=== PATIENT | female | born 1935 | race Caucasian/White ===

== ENCOUNTER 2018-03-11 13:31 | Emergency (ER) | payer MEDICARE ==
[~2018-03-11] VITALS: Ht 167.6 cm; Wt 58.0 kg
[~2018-03-11 13:31] MED LIST: ALPR-138 PO; AMLO5TAB96 PO; COUM2.5T PO; LANO0.2510 PO; VITATAB25 PO; WARF2TAB PO; ZOCO40TA PO
[2018-03-11 13:34] VITALS: BP 148/81; PULSE 87; RESP 16; TEMP 98.2; O2SAT 96
[2018-03-11] MEDS ORDERED: ALPR.5 PO (13:47)
[2018-03-11] MEDS ORDERED: WARF-18 PO (13:47)
[2018-03-11] MEDS ORDERED: DIGO0.12 PO (13:47)
[2018-03-11] MEDS ORDERED: PRAV40TA2 PO (13:47)
[2018-03-11] MEDS ORDERED: AMLO5TAB2 PO (13:47)
[2018-03-11] MEDS ORDERED: D200CAP PO (13:47)
[2018-03-11] MEDS ORDERED: LORazepam 0.5 MG TAB PO ONE (14:15)
--- NOTE | 2018-03-11 14:36 | PD ---
HPI Chief Complaint: Anxiety Time Seen by Provider: 13:53 Travel History International Travel<30 days: No Contact w/Intl Traveler<30days: No Traveled to known affect area: No History of Present Illness HPI This patient complains of anxiety. She got nervous and anxious. Then she started to get numbness of both hands and both feet. There is no muscle weakness or sensory loss or speech slurring. By the time I evaluate her her problem has basically gone away and she says she feels much better. Her anxiety is very minor at this time. The numbness has gone away. She does not have headache or syncope or chest pain. No alleviating factors. No exacerbating factors. PFSH Past Medical History Atrial Fibrillation: Yes Anxiety: Yes Heart Rhythm Problems: Yes (atrial fibrillation) Cancer: No Cardiovascular Problems: Yes (A-Fib) High Cholesterol: Yes Chest Pain: No Congestive Heart Failure: No Cerebrovascular Accident: Yes (TIA symptoms 2013) Diminished Hearing: No Endocrine: No Genitourinary: No Hypertension: Yes Musculoskeletal: No Neurologic: Yes Psychiatric: Yes Reproductive: No Respiratory: No Immunizations Current: Yes Migraines: No Seizures: No Influenza Vaccination: Yes ?: Not Menopausal: Yes Past Surgical History Appendectomy: Yes (UNSURE) Genitourinary Surgery: Yes (hysterectomy) Hysterectomy: Yes Social History Alcohol Use: Yes (WINE OCC) Tobacco Use: No Substance Use: No Allergies-Medications (Allergen,Severity, Reaction): Coded Allergies: No Known Allergies (Verified , 10/24/14) Reported Meds & Prescriptions Reported Meds & Active Scripts Active Reported D3 Super Strength (Cholecalciferol) 2,000 Unit Cap 2,000 Units PO DAILY Xanax (Alprazolam) 0.5 Mg Tab 0.5 Mg PO Q6H PRN Pravastatin 40 Mg Tab 40 Mg PO DAILY Amlodipine (Amlodipine Besylate) 5 Mg Tab 5 Mg PO DAILY Warfarin 2.5 Mg Tab 2.5 Mg PO MCCLURE,MO,,TH,SA Digoxin 0.125 Mg Tab 0.125 Mg PO DAILY Vitamin D-[address] (Cholecalciferol) 1,000 Unit Tab 1,000 Unit PO DAILY Coumadin 2.5 mg (Warfarin Sodium) Warfarin Sodium 2.5 mg Tab 1 Tab PO T,W,,SAT ,MCCLURE Warfarin Sodium 2 Mg Tab 1 Tab PO MON,FRI Xanax (Alprazolam) 0.25 Mg Tab 0 PO BIDPRN UNKNOWN DOSE Zocor 40 mg (Simvastatin) 40 Mg Tab 40 Mg PO HS Lanoxin (Digoxin) 0.25 Mg Tab 0.25 Mg PO DAILY Norvasc (Amlodipine Besylate) 5 Mg Tab 5 Mg PO DAILY Review of Systems General / Constitutional: No: Fever Eyes: No: Visual changes HENT: No: Headaches Cardiovascular: No: Chest Pain or Discomfort Respiratory: No: Shortness of Breath Gastrointestinal: No: Abdominal Pain Genitourinary: No: Dysuria Musculoskeletal: No: Pain Skin: No Rash Neurologic: No: Weakness Psychiatric: Positive: Anxiety, No: Depression Endocrine: No: Polydipsia Hematologic/Lymphatic: No: Easy Bruising Physical Exam Narrative GENERAL: Well-nourished, well-developed patient in no apparent distress. SKIN: Focused skin assessment reveals no rash and nodules. Skin is Warm and dry. HEAD: Atraumatic. Normocephalic. EYES: Pupils equal and round. No scleral icterus. No injection or drainage. ENT: No nasal bleeding or discharge. Mucous membranes pink and moist. NECK: Trachea midline. No JVD. CARDIOVASCULAR: Regular rate and rhythm. No murmur appreciated. RESPIRATORY: No accessory muscle use. Clear to auscultation. Breath sounds equal bilaterally. GASTROINTESTINAL: Abdomen soft, non-tender, nondistended. Hepatic and splenic margins not palpable. MUSCULOSKELETAL: No obvious deformities. No clubbing. No cyanosis. No edema. Chronic flexion of the right fourth and fifth finger. NEUROLOGICAL: Awake and alert. No obvious cranial nerve deficits. Motor grossly within normal limits. Normal speech. PSYCHIATRIC: Appropriate mood and affect; insight and judgment normal. Data Data Last Documented VS Vital Signs Date Time Temp Pulse Resp B/P (MAP) Pulse Ox O2 Delivery O2 Flow Rate FiO2 03/11/18 13:34 98.2 87 16 148/81 (103) 96 Orders Orders Lorazepam (Ativan) (03/11/18 14:15) [facility] Medical Decision Making Medical Screen Exam Complete: Yes Emergency Medical Condition: Yes Medical Record Reviewed: Yes Differential Diagnosis Anxiety, panic, CVA Narrative Course I have reviewed the patient's electronic medical record. Patient had an anxiety attack that has resolved and now her symptoms are gone away. The patient was advised to follow up with their physician and return if they worsen. Diagnosis Primary Impression: Anxiety attack Additional Instructions: The patient was advised to follow up with their physician and return if they worsen. Med/Other Pt SpecificInfo: Other Disposition: 01 DISCHARGE HOME Condition: Stable Isaac Anglin MD Mar 11, 2018 14:36
== END 2018-03-11 15:05 | disposition home or self-care (01) ==
LOC: PHED 13:31
DX: F41.1 Generalized anxiety disorder (principal); I48.91 Unspecified atrial fibrillation; E78.00 Pure hypercholesterolemia, unspecified; I10 Essential (primary) hypertension; M19.90 Unspecified osteoarthritis, unspecified site; Z86.73 Personal history of transient ischemic attack (TIA), and cerebral infarction without residual deficits
CPT/HCPCS: 99283

== ENCOUNTER 2018-04-04 12:52 | Emergency (ER) | payer MEDICARE ==
[~2018-04-04] VITALS: Ht 167.6 cm; Wt 54.0 kg
[~2018-04-04 12:52] MED LIST changes: +ALPR.5 PO; +AMLO5TAB2 PO; +D200CAP PO; +DIGO0.12 PO; +PRAV40TA2 PO; +WARF-18 PO
[2018-04-04 13:06] VITALS: BP 118/57; PULSE 80; RESP 16; TEMP 97.7; O2SAT 98
[2018-04-04] MEDS ORDERED: DEXAMETHASONE SOD PHOS 4 MG/ML VIAL IM ONE (14:30)
--- NOTE | 2018-04-04 14:35 | PD ---
HPI Chief Complaint: Musculoskeletal Complaint Time Seen by Provider: 13:25 Travel History International Travel<30 days: No Contact w/Intl Traveler<30days: No Traveled to known affect area: No History of Present Illness HPI 82-year-old female presents emergency department complaining of left leg pain that started 2 weeks ago. Patient says that she feels as if her leg is "on fire " and has a difficult time pointing out where she is having pain but describes it as diffuse. Patient says that she has had difficulty raising the leg secondary to pain. There are no apparent palliative or provocative factors. The pain is moderate in severity. Says the pain starts in the left glut and goes to the thigh and foot. Says he has had multiple falls in the last several months and was here at [facility] approximately 1 week ago. Says that she has been evaluated for these falls previously. She does take Coumadin for her history of atrial fibrillation. PFSH Past Medical History Atrial Fibrillation: Yes Anxiety: Yes Heart Rhythm Problems: Yes (atrial fibrillation) Cancer: No Cardiovascular Problems: Yes (A-Fib) High Cholesterol: Yes Chest Pain: No Congestive Heart Failure: No Cerebrovascular Accident: Yes (TIA symptoms 2013) Diminished Hearing: No Endocrine: No Genitourinary: No Hypertension: Yes Musculoskeletal: No Neurologic: Yes Psychiatric: Yes Reproductive: No Respiratory: No Immunizations Current: Yes Migraines: No Seizures: No Menopausal: Yes Past Surgical History Appendectomy: Yes (UNSURE) Genitourinary Surgery: Yes (hysterectomy) Hysterectomy: Yes Social History Alcohol Use: Yes (WINE OCC) Tobacco Use: No Substance Use: No Allergies-Medications (Allergen,Severity, Reaction): Coded Allergies: No Known Allergies (Verified Adverse Reaction, Unknown, 04/04/18) Reported Meds & Prescriptions Reported Meds & Active Scripts Active Prednisone 5 Mg Tab 5 Mg PO DAILY 5 Days As discussed, start this medication in 1-2 days if your pain persists. Reported D3 Super Strength (Cholecalciferol) 2,000 Unit Cap 2,000 Units PO DAILY Xanax (Alprazolam) 0.5 Mg Tab 0.5 Mg PO Q6H PRN Pravastatin 40 Mg Tab 40 Mg PO DAILY Amlodipine (Amlodipine Besylate) 5 Mg Tab 5 Mg PO DAILY Warfarin 2.5 Mg Tab 2.5 Mg PO MCCLURE,MO,WE,TH,SA Digoxin 0.125 Mg Tab 0.125 Mg PO DAILY Vitamin D-[address] (Cholecalciferol) 1,000 Unit Tab 1,000 Unit PO DAILY Coumadin 2.5 mg (Warfarin Sodium) Warfarin Sodium 2.5 mg Tab 1 Tab PO T,W,TH,SAT ,MCCLURE Warfarin Sodium 2 Mg Tab 1 Tab PO MON,FRI Xanax (Alprazolam) 0.25 Mg Tab 0 PO BIDPRN UNKNOWN DOSE Zocor 40 mg (Simvastatin) 40 Mg Tab 40 Mg PO HS Lanoxin (Digoxin) 0.25 Mg Tab 0.25 Mg PO DAILY Norvasc (Amlodipine Besylate) 5 Mg Tab 5 Mg PO DAILY Review of Systems Except as stated in HPI: all other systems reviewed are Neg Physical Exam Narrative GENERAL: Well developed, well-nourished, thin, slightly anxious SKIN: Focused skin assessment warm/dry. HEAD: Atraumatic. Normocephalic. EYES: Pupils equal and round. No scleral icterus. No injection or drainage. PERRLA ENT: No nasal bleeding or discharge. Mucous membranes pink and moist. NECK: Trachea midline. No JVD. No midline tenderness CARDIOVASCULAR: Regular rate and rhythm. No murmur appreciated. RESPIRATORY: No accessory muscle use. Clear to auscultation. Breath sounds equal bilaterally. MUSCULOSKELETAL: No obvious deformities. No clubbing. No cyanosis. No edema. Bilateral lower extremities neurovascularly intact. DTRs 2/5 NEUROLOGICAL: Awake and alert. Cranial nerves II through XII intact. Motor and sensory grossly within normal limits. Five out of 5 muscle strength in all muscle groups. Left hip flexion with some pain. Normal speech. PSYCHIATRIC: Appropriate mood and affect; insight and judgment normal. Data Data Last Documented VS Vital Signs Date Time Temp Pulse Resp B/P (MAP) Pulse Ox O2 Delivery O2 Flow Rate FiO2 04/04/18 13:06 97.7 80 16 118/57 (77) [address] Lumb Spine W/O Contrast (04/04/18 ) Ct Hip W/O Contrast (04/04/18 ) Dexamethasone Inj (Decadron Inj) (04/04/18 14:30) Ct Brain W/O Iv Contrast(Rout) (04/04/18 ) Ed Discharge Order (04/04/18 15:33) MDM Medical Decision Making Medical Screen Exam Complete: Yes Emergency Medical Condition: Yes Differential Diagnosis Left leg sciatica, fracture, ICH, SAH Narrative Course 82-year-old female presents emergency department complaining of left leg pain that started 2 weeks ago. Patient says that she feels as if her leg is "on fire " and has a difficult time pointing out where she is having pain but describes it as diffuse. Patient says that she has had difficulty raising the leg secondary to pain. There are no apparent palliative or provocative factors. The pain is moderate in severity. Says the pain starts in the left glut and goes to the thigh and foot. Says he has had multiple falls in the last several months and was here at [facility] approximately 1 week ago. Says that she has been evaluated for these falls previously. She does take Coumadin for her history of atrial fibrillation. Vital signs are stable. After review the EMR, it appears the patient presented to the emergency department March 11 with anxiety. It appears that patient has had some "numbness" previously that was intermittent and resolved by the time she presented to the ED. It appears that patient also has a history of TIA, tinnitus, vertigo. I do not see where patient has had evaluation for the falls that as mentioned previously. I added a CT of the brain to ensure stability. Dexamethasone administered for apparent sciatica pain. Patient is a rather poor historian however, patient's best describes sciatica of the left lower extremity. She states compliance with medications at home and she does have good follow-up with Dr. Mcelroy, her primary care physician. I strongly advised she follow-up with her neurologist whom she has good contact with. I gave her a very short course of prednisone in case her pain does not resolve in 1 to days. Advised that she may start this medication in 1-2 days. Advised that she should return to her primary care physician or neurologist for further evaluation. She and her state understanding and will comply. Diagnosis Primary Impression: Sciatica Qualified Codes: M54.32 - Sciatica, left side Additional Impression: Fall Qualified Codes: W19.XXXA - Unspecified fall, initial encounter Referrals: Primary Care Physician Additional Instructions: Perform light stretches of the lower back and legs, and alternate heat and ice packs. If you develop increased pain, weakness, fever, chills, or bowel or bladder issues, return to the ED for further treatment and evaluation. Start the prednisone in 1-2 days. Follow-up with your neurologist as soon as possible regarding her pain. Also follow-up with her primary care physician for further treatment and evaluation. Scripts Prednisone (Prednisone) 5 Mg Tab 5 MG PO DAILY for 5 Days, #5 TAB 0 Refills As discussed, start this medication in 1-2 days if your pain persists. Prov: Malik Solorzano MD 04/04/18 Disposition: 01 DISCHARGE HOME Condition: Stable Terra Zhou April 04, 2018 14:35
--- NOTE | 2018-04-04 15:09 | RADRPT ---
EXAM DATE/TIME: 04/04/2018 14:39 [facility] COMPARISON: No previous studies available for comparison. INDICATIONS : Multiple falls recently. RADIATION DOSE: 45.56 CTDIvol (mGy) MEDICAL HISTORY : Cardiovascular disease. SURGICAL HISTORY : None. ENCOUNTER: Initial ACUITY: 4 - 6 days PAIN SCALE: 0/10 LOCATION: cranial TECHNIQUE: Multiple contiguous axial images were obtained of the head. Using automated exposure control and adj ustment of the mA and/or kV according to patient size, radiation dose was kept as low as reasonably a chievable to obtain optimal diagnostic quality images. DICOM format image data is available electro nically for review and comparison. FINDINGS: CEREBRUM: The ventricles are normal for age. No evidence of midline shift, mass lesion, hemorrhage or acute in farction. No extra-axial fluid collections are seen. POSTERIOR FOSSA: The cerebellum and brainstem are intact. The 4th ventricle is midline. The cerebellopontine angle i s unremarkable. EXTRACRANIAL: The visualized portion of the orbits is intact. SKULL: The calvaria is intact. No evidence of skull fracture. CONCLUSION: No acute findings. Probable small lacunar infarct in the left periventricular white m atter superiorly. Rick Addison MD on April 04, 2018 at 15:02 Board Certified Radiologist. This report was verified electronically.
--- NOTE | 2018-04-04 15:12 | RADRPT ---
EXAM DATE/TIME: 04/04/2018 14:42 [facility] COMPARISON: No previous studies available for comparison. INDICATIONS : Left leg pain. Recent falls. RADIATION DOSE: 6.56 CTDIvol (mGy) MEDICAL HISTORY : Cardiovascular disease. SURGICAL HISTORY : None. ENCOUNTER: Initial ACUITY: 4 - 6 days PAIN SCALE: 3/10 LOCATION: Left pelvis TECHNIQUE: Volumetric scanning of the hip was performed. Using automated exposure control and adjustment of the mA and/or kV according to patient size, radiation dose was kept as low as reasonably achievable to o btain optimal diagnostic quality images. DICOM format image data is available electronically for rev iew and comparison. FINDINGS: BONES: No evidence of fracture. Alignment is within normal limits. JOINTS: No evidence of joint narrowing or effusion. SOFT TISSUES: Muscles, tendons and neurovascular structures are grossly unremarkable. No evidence of mass, organize d fluid collection, or foreign body. CONCLUSION: 1. No acute findings. Rick Addison MD on April 04, 2018 at 15:06 Board Certified Radiologist. This report was verified electronically.
--- NOTE | 2018-04-04 15:22 | RADRPT ---
EXAM DATE/TIME: 04/04/2018 14:42 [facility] COMPARISON: No previous studies available for comparison. INDICATIONS : Left hip pain burning down leg. RADIATION DOSE: 15.57 CTDIvol (mGy) MEDICAL HISTORY : Cardiovascular disease. SURGICAL HISTORY : None. ENCOUNTER: Initial ACUITY: 4 - 6 days PAIN SCALE: 4/10 LOCATION: Left pelvis TECHNIQUE: Volumetric scanning of the lumbar spine was performed. Multiplanar reconstructions in the sagittal, coronal and oblique axial planes were performed. Using automated exposure control and adjustment of the mA and/or kV according to patient size, radiation dose was kept as low as reasonably achievable t o obtain optimal diagnostic quality images. DICOM format image data is available electronically for review and comparison. FINDINGS: No acute fracture. Minimal degenerative retrolisthesis L2 on L3. Mild posterior disc bulging at L3-4- 5 with mild encroachment on the lateral recesses and neural foramina. Moderate facet arthropathy lowe r lumbar spine. CONCLUSION: 1. No acute findings. Degenerative changes as above. Rick Addison MD on April 04, 2018 at 15:10 Board Certified Radiologist. This report was verified electronically.
[2018-04-04] MEDS ORDERED: PRED5TAB PO (15:31)
== END 2018-04-04 15:46 | disposition home or self-care (01) ==
LOC: PHEFT 12:52
DX: M54.32 Sciatica, left side (principal); I48.91 Unspecified atrial fibrillation; I10 Essential (primary) hypertension; E78.00 Pure hypercholesterolemia, unspecified; F41.9 Anxiety disorder, unspecified; Z79.01 Long term (current) use of anticoagulants; Z86.69 Personal history of other diseases of the nervous system and sense organs; Z86.73 Personal history of transient ischemic attack (TIA), and cerebral infarction without residual deficits; W19.XXXA Unspecified fall, initial encounter
CPT/HCPCS: 70450; 72131; 73700; 96372; 99284; J1100; 90471